=== PATIENT | female | born 1950 | race Caucasian/White ===

== ENCOUNTER 2023-06-02 07:16 | Day surgery (SDC) | payer OTHER ==
[2023-06-01 13:25] VITALS: BMI 31.4
[2023-06-02] MEDS ORDERED: ONDANSETRON 4 MG/2 ML VIAL ONE (08:36)
[2023-06-02] MEDS ORDERED: PROPOFOL 40 ML ONE (08:36)
[2023-06-02] MEDS ORDERED: ceFAZolin SODIUM 1 GM VIAL ONE ×2 (08:36→09:27)
[2023-06-02] MEDS ORDERED: MIDAZOLAM HCL 2 MG/2 ML SINGLE DOSE VIAL ONE (08:36)
[2023-06-02] MEDS ORDERED: DEXAMETHASONE SOD PHOSPHATE 4 MG/1 ML VIAL ONE (08:36)
[2023-06-02] MEDS ORDERED: BUPIVACAINE HCL/PF 0.5% (5MG/ML) 10 ML VIAL ONE (09:27)
[2023-06-02] MEDS ORDERED: LIDOCAINE 1%/EPI 1:100000 (50 ML MULTI DOSE VIAL) ONE (09:27)
[2023-06-02] MEDS ORDERED: ERYTHROMYCIN 0.5% OPHTHALMIC OINTMENT 3.5 GM TUBE ONE (09:27)
[2023-06-02] MEDS ORDERED: TETRACAINE 0.5% OPHTH SOLN 2 ML BOTTLE ONE (09:27)
[2023-06-02] MEDS ORDERED: GENTAMICIN SO4 80 MG/2 ML VIAL ONE (09:30)
[2023-06-02] MEDS ORDERED: ONDANSETRON 4 MG/2 ML VIAL IVPUSH PRN (11:01)
[2023-06-02] MEDS ORDERED: oxyCODONE HCL 5 MG TABLET PO PRN (11:01)
[2023-06-02] MEDS ORDERED: LACTATED RINGERS SOLUTION 1,000 ML IV SCH (11:15)
[2023-06-02 12:10] VITALS: RESP 16; TEMP 97.9
[2023-06-02 12:52] VITALS: BP 142/80; PULSE 76
== END 2023-06-02 12:45 | disposition home or self-care (01) ==
LOC: FASU 07:16
PROVIDERS: ATTEND Ophthalmology
PROC: 0KX10ZZ Transfer Facial Muscle, Open Approach (ICD-10-PCS; 2023-06-02)
PROC: 08SQ0ZZ Reposition Right Lower Eyelid, Open Approach (ICD-10-PCS; principal; 2023-06-02 10:05)
DX: C44.1122 Basal cell carcinoma of skin of right lower eyelid, including canthus (principal)
CPT/HCPCS: 88304-TC; 94760